=== PATIENT | female | born 1995 | race African-American/Black ===

== ENCOUNTER 2016-12-09 13:54 | Emergency (ER) | payer SELFPAY ==
[~2016-12-09] VITALS: Ht 170.2 cm; Wt 57.0 kg
[2016-12-09 14:23] VITALS: BP 118/68
== END 2016-12-09 18:00 | disposition left against medical advice (07) ==
LOC: ER 17:53
DX: Z53.21 Procedure and treatment not carried out due to patient leaving prior to being seen by health care provider (principal)